=== PATIENT | female | born 1980 | race Caucasian/White ===

== ENCOUNTER 2019-04-28 06:11 | Emergency (ER) | payer MEDICAID ==
[~2019-04-28] VITALS: Ht 177.8 cm; Wt 125.0 kg
[~2019-04-28 06:11] MED LIST: ALBU6.7H9 INH; CYCL-1 PO; DEXL60CA3 PO; IBUP-1986 PO; METH-360 PO; NO HOME MEDS; PHEN16.241 PO; ZOF4T PO
[2019-04-28 06:14] VITALS: BP 157/104
[2019-04-28] MEDS ORDERED: erythromycin ophthalmic ointment 1gm tube RIGHTEYE ONE (06:25)
== END 2019-04-28 06:38 | disposition home or self-care (01) ==
LOC: ER 06:12
DX: H57.89 Other specified disorders of eye and adnexa (principal); Z79.899 Other long term (current) drug therapy
CPT/HCPCS: 99282

== ENCOUNTER 2019-09-23 19:59 | Emergency (ER) | payer MEDICAID ==
[~2019-09-23] VITALS: Ht 177.8 cm; Wt 122.0 kg
[2019-09-23 20:26] VITALS: BP 158/112
[2019-09-23 21:39] LABS: CLARITY,URINE SLIGHTLY CLOUDY (Clear); COLOR,URINE YELLOW (Yellow); GLUCOSE, URINE NEGATIVE (Neg); KETONES,URINE NEGATIVE (Neg); LEUKOCYTE ESTERASE ,URINE TRACE (Neg); NITRITES, URINE NEGATIVE (Neg); OCCULT BLOOD,URINE TRACE-INTACT (Neg); PROTEIN,URINE NEGATIVE (Neg); UROBILINOGEN,URINE 0.2 E.U/dL (0.2-1.0)
[2019-09-23 21:40] LABS: UA COLLECTION TYPE CLN CATCH MIDSTREAM
[2019-09-23 21:42] LABS: URINE HCG NEGATIVE (NEG)
[2019-09-23] MEDS ORDERED: HYDROcodone/acetaminophen 5mg/325mg tablet PO ONE (21:45)
[2019-09-23] MEDS ORDERED: ondansetron 4mg rapidly disintigrating tab PO ONE (21:45)
[2019-09-23] MEDS ORDERED: ketorolac trometh inj. 60 MG/2 ML VIAL IM ONE (21:45)
[2019-09-23 21:51] LABS: BACTERIA,URINE 2+ /HPF (Neg); RBC,URINE 0-2 /HPF (0-2); SQUAMOUS EPITHELIAL CELL,UR MODERATE /LPF (FEW)
[2019-09-23] MEDS ORDERED: NITR100C6 PO (22:01)
== END 2019-09-23 22:15 | disposition home or self-care (01) ==
LOC: ER 20:01
DX: S33.5XXA Sprain of ligaments of lumbar spine, initial encounter (principal); N39.0 Urinary tract infection, site not specified; G89.29 Other chronic pain; F10.99 Alcohol use, unspecified with unspecified alcohol-induced disorder; Z79.899 Other long term (current) drug therapy; X58.XXXA Exposure to other specified factors, initial encounter; Y93.89 Activity, other specified; Y92.89 Other specified places as the place of occurrence of the external cause; Y99.8 Other external cause status; Y90.9 Presence of alcohol in blood, level not specified
CPT/HCPCS: 81001; 81025; 87088; 96372; 99283; J1885

== ENCOUNTER 2020-02-01 18:30 | Emergency (ER) | payer MEDICAID ==
[~2020-02-01] VITALS: Ht 177.8 cm; Wt 95.5 kg
[~2020-02-01 18:30] MED LIST changes: +NITR100C6 PO
[2020-02-01] MEDS ORDERED: CEPH250T PO (18:34)
[2020-02-01 19:03] VITALS: BP 145/89
== END 2020-02-01 19:04 | disposition home or self-care (01) ==
LOC: ER 18:30
DX: L03.115 Cellulitis of right lower limb (principal); G89.29 Other chronic pain; Z79.899 Other long term (current) drug therapy
CPT/HCPCS: 99283

== ENCOUNTER 2020-05-22 10:11 | Emergency (ER) | payer MEDICAID ==
[~2020-05-22] VITALS: Ht 177.8 cm; Wt 136.4 kg
[2020-05-22 10:27] VITALS: BP 139/92
[2020-05-22] MEDS ORDERED: ketorolac tromethamine 15mg/ml inj. IM ONE (10:35)
[2020-05-22] MEDS ORDERED: cyclobenzaprine 10mg tablet PO ONE (10:35)
[2020-05-22] MEDS ORDERED: ONDA4TAB6 PO (10:42)
[2020-05-22] MEDS ORDERED: CYCL-1 PO (10:42)
== END 2020-05-22 11:14 | disposition home or self-care (01) ==
LOC: EEVIPCON 10:11 → ER 10:11
DX: B34.9 Viral infection, unspecified (principal); R50.9 Fever, unspecified; M79.18 Myalgia, other site; R51 Headache; R11.2 Nausea with vomiting, unspecified; Z20.828 Contact with and (suspected) exposure to other viral communicable diseases; R21 Rash and other nonspecific skin eruption; R61 Generalized hyperhidrosis; G89.29 Other chronic pain; F17.210 Nicotine dependence, cigarettes, uncomplicated; Z72.89 Other problems related to lifestyle; Z79.899 Other long term (current) drug therapy
CPT/HCPCS: 96372; 99283; J1885; 36415

== ENCOUNTER 2020-05-25 19:17 | Emergency (ER) | payer MEDICAID ==
[~2020-05-25] VITALS: Ht 177.8 cm; Wt 136.4 kg
[~2020-05-25 19:17] MED LIST changes: +ONDA4TAB6 PO
[2020-05-25] MEDS ORDERED: acetaminophen 325mg tablet PO ONE (22:25)
[2020-05-25] MEDS ORDERED: ketorolac trometh. 30mg/ml inj. IV ONE (22:25)
[2020-05-25] MEDS ORDERED: diphenhydrAMINE 50 mg/ml inj IV ONE ×2 (22:25→23:30)
[2020-05-25] MEDS ORDERED: normal saline 1000ml 1,000 ML IV ONE ×2 (22:25→23:30)
[2020-05-25] MEDS ORDERED: proCHLORperazine 10 MG/2 ml inj IV PRN (22:25)
[2020-05-25 22:51] LABS: BASOPHILS % (AUTO) 0.5 % (0-1); EOSINOPHILS # (AUTO) 0.4 X10'3 (0-0.9); EOSINOPHILS % (AUTO) 6.3 % (0-6); HEMATOCRIT 40.6 % (35.0-45.0); HEMOGLOBIN 13.5 g/dl (12.0-16.0); LYMPHOCYTES # (AUTO) 1.9 X10'3 (1.1-4.8); LYMPHOCYTES % (AUTO) 31.2 % (21-51); MEAN CORPUSCULAR HEMOGLOBIN 28.8 PG (27.0-31.0); MEAN CORPUSCULAR HGB CONC 33.2 g/dL (33.0-36.5); MEAN CORPUSCULAR VOLUME 86.8 FL (78-98); MEAN PLATELET VOLUME 8.8 FL (7.4-10.4); MONOCYTES # (AUTO) 0.4 X10'3 (0-0.9); MONOCYTES % (AUTO) 6.6 % (2-12); NEUTROPHILS # (AUTO) 3.4 X10'3 (1.8-7.7); NEUTROPHILS % (AUTO) 55.4 % (42-75); PLATELET COUNT 300 X10'3 (140-440); RED BLOOD COUNT 4.67 X10'6 (4.20-5.60); RED CELL DISTRIBUTION WIDTH 13.3 % (11.5-14.5); WHITE BLOOD COUNT 6.1 X10'3 (4.5-11.0)
[2020-05-25 23:02] LABS: ALBUMIN 2.9 G/DL (3.4-5.0); ANION GAP 6 (8-16); BLOOD UREA NITROGEN 10 MG/DL (7-18); BUN/CREATININE RATIO 11.2 (6.6-38.0); CALCIUM 8.1 MG/DL (8.5-10.1); CHLORIDE 109 MMOL/L (99-107); CREATININE 0.89 MG/DL (0.40-0.90); GLUCOSE 98 MG/DL (70-104); POTASSIUM 3.7 MMOL/L (3.5-5.1); SODIUM 142 MMOL/L (135-145); TOTAL CARBON DIOXIDE 27.3 MMOL/L (24-32); eGFR 71 ML/MIN
[2020-05-25] MEDS ORDERED: metoclopramide 5 mg/ml inj IV ONE (23:30)
[2020-05-26 00:20] VITALS: BP 102/60
[2020-05-26 00:24] LABS: URINE HCG NEGATIVE (NEG)
[2020-05-26 00:26] LABS: CLARITY,URINE SLIGHTLY CLOUDY (Clear); COLOR,URINE YELLOW (Yellow); GLUCOSE, URINE NEGATIVE (Neg); KETONES,URINE NEGATIVE (Neg); LEUKOCYTE ESTERASE ,URINE NEGATIVE (Neg); NITRITES, URINE NEGATIVE (Neg); OCCULT BLOOD,URINE TRACE-INTACT (Neg); PROTEIN,URINE TRACE mg/dl (Neg); UROBILINOGEN,URINE 0.2 E.U/dL (0.2-1.0)
[2020-05-26 00:38] LABS: UA COLLECTION TYPE CLN CATCH MIDSTREAM
[2020-05-26 00:39] LABS: BACTERIA,URINE 1+ /HPF (Neg); RBC,URINE 0-2 /HPF (0-2); SQUAMOUS EPITHELIAL CELL,UR MODERATE /LPF (FEW); WBC,URINE NONE SEEN /HPF (0-4)
== END 2020-05-26 00:21 | disposition home or self-care (01) ==
LOC: ER 19:18
DX: M79.10 Myalgia, unspecified site (principal); R51 Headache; G47.30 Sleep apnea, unspecified; F17.200 Nicotine dependence, unspecified, uncomplicated; Z72.89 Other problems related to lifestyle; Z79.899 Other long term (current) drug therapy
CPT/HCPCS: 36415; 80048; 81001; 81025; 85025; 93005; 96361; 96374; 96375; 96376; 99285; J0780; J1200; J1885; J2765; J7030; 99284

== ENCOUNTER 2023-01-23 12:54 | Inpatient (IN) | payer MEDICAID, OTHER ==
[~2023-01-23] VITALS: Ht 177.8 cm; Wt 137.8 kg
[2023-01-23] VITALS (13 sets, daily range): BP systolic 117–144; BP diastolic 71–103
[~2023-01-23 12:54] MED LIST changes: +ALBU6.7H14 INH; -ALBU6.7H9 INH
[2023-01-23 13:30] LABS: BASOPHILS # (AUTO) 0.1 X10'3 (0-0.2); EOSINOPHILS # (AUTO) 0.5 X10'3 (0-0.9); EOSINOPHILS % (AUTO) 5.3 % (0-6); HEMATOCRIT 39.2 % (35.0-45.0); HEMOGLOBIN 12.1 g/dl (12.0-16.0); LYMPHOCYTES # (AUTO) 1.5 X10'3 (1.1-4.8); LYMPHOCYTES % (AUTO) 16.6 % (21-51); MEAN CORPUSCULAR HEMOGLOBIN 23.7 PG (27.0-31.0); MEAN CORPUSCULAR HGB CONC 30.9 g/dL (33.0-36.5); MEAN CORPUSCULAR VOLUME 76.9 FL (78-98); MEAN PLATELET VOLUME 8.1 FL (7.4-10.4); MONOCYTES # (AUTO) 0.4 X10'3 (0-0.9); MONOCYTES % (AUTO) 4.6 % (2-12); NEUTROPHILS # (AUTO) 6.7 X10'3 (1.8-7.7); NEUTROPHILS % (AUTO) 72.5 % (42-75); PLATELET COUNT 475 X10'3 (140-440); RED CELL DISTRIBUTION WIDTH 17.3 % (11.5-14.5); WHITE BLOOD COUNT 9.3 X10'3 (4.5-11.0)
[2023-01-23 13:31] LABS: CLARITY,URINE CLOUDY (Clear); COLOR,URINE YELLOW (Yellow); GLUCOSE, URINE NEGATIVE (Neg); KETONES,URINE TRACE mg/dl (Neg); LEUKOCYTE ESTERASE ,URINE NEGATIVE (Neg); NITRITES, URINE NEGATIVE (Neg); OCCULT BLOOD,URINE MODERATE (Neg); PROTEIN,URINE TRACE mg/dl (Neg); UROBILINOGEN,URINE 0.2 E.U/dL (0.2-1.0)
[2023-01-23 13:37] LABS: UA COLLECTION TYPE CLN CATCH MIDSTREAM
[2023-01-23 13:40] LABS: URINE HCG NEGATIVE (NEG)
[2023-01-23 13:50] LABS: MUCUS STRANDS MANY /LPF (Neg); SQUAMOUS EPITHELIAL CELL,UR MANY /LPF (FEW)
[2023-01-23 13:51] LABS: BACTERIA,URINE FEW /HPF (Neg); WBC,URINE 0-4 /HPF (0-4)
[2023-01-23 13:52] LABS: ALANINE AMINOTRANSFERASE 19 U/L (12-78); ALBUMIN 3.8 G/DL (3.4-5.0); ALKALINE PHOSPHATASE 90 IU/L (46-116); ANION GAP 9 (8-16); ASPARTATE AMINO TRANSFERASE 17 U/L (10-37); BILIRUBIN,TOTAL 0.3 MG/DL (0.1-1.0); BLOOD UREA NITROGEN 13 MG/DL (7-18); BUN/CREATININE RATIO 11.7 (10.0-20.0); CALCIUM 9.9 MG/DL (8.5-10.1); CHLORIDE 106 MMOL/L (99-107); CREATININE 1.11 MG/DL (0.40-0.90); GLUCOSE 110 MG/DL (70-104); LIPASE 62 U/L (73-393); POTASSIUM 4.5 MMOL/L (3.5-5.1); SODIUM 143 MMOL/L (135-145); TOTAL CARBON DIOXIDE 28.3 MMOL/L (24-32); TOTAL PROTEIN 7.6 G/DL (6.4-8.2); eGFR 54 ML/MIN
[2023-01-23] MEDS ORDERED: morphine 4 MG/ML inj SYRINge IV ONE (14:15)
[2023-01-23] MEDS ORDERED: ondansetron/PF 4mg/2ml inj IV ONE (14:15)
[2023-01-23] MEDS ORDERED: iohexol 300mg/ml 100ml inj. ONE (14:23)
--- NOTE | 2023-01-23 16:48 | NUR ---
Doppler U/S done w/ 15cc urine resid. Pt taken to [facility] Room F, and Enma Rubio examined pt, w/ wet mount and vag culture completed. Pt amb back to Rm 12 and was resituated.
[2023-01-23] MEDS ORDERED: ceFAZolin 1000mg inj IR ONE (17:00)
[2023-01-23] MEDS ORDERED: ondansetron/PF 4mg/2ml inj IV PRN ×2 (17:10→19:55)
[2023-01-23] MEDS ORDERED: ringers solution, lacted 1,000 ML IV SCH (17:10)
[2023-01-23] MEDS ORDERED: morphine 2 MG/ML inj. syringe IV PRN (17:10)
[2023-01-23] MEDS ORDERED: fentaNYL/PF 50MCG/1 ML 2ML syringe IV PRN (17:10)
[2023-01-23] MEDS ORDERED: hydrALAZINE 20mg/ml inj. IV PRN (17:10)
[2023-01-23] MEDS ORDERED: morphine 4 MG/ML inj SYRINge IV PRN (17:10)
[2023-01-23] MEDS ORDERED: labetalol 20mg/4ml (5mg/ml) syringe IV PRN (17:10)
[2023-01-23] MEDS ORDERED: iohexol 300 MG/1 ML 50ml polymer ONE (17:15)
[2023-01-23] MEDS ORDERED: fentaNYL/PF 50MCG/1 ML 2ML syringe ONE (17:20)
[2023-01-23] MEDS ORDERED: midazolam 1 mg/ML 2ml injection ONE (17:21)
[2023-01-23] MEDS ORDERED: succinylcholine 20mg/ml inj IV ONE (17:22)
[2023-01-23] MEDS ORDERED: ondansetron/PF 4mg/2ml inj ONE (17:22)
[2023-01-23] MEDS ORDERED: LIDOcaine 2% (20mg/ml) 5ml vial ONE (17:22)
[2023-01-23] MEDS ORDERED: iohexol 350 MG/ML 50ML vial IV ONE (17:51)
[2023-01-23] MEDS ORDERED: dexamethasone sod phosphate 4mg/ml inj. ONE (18:04)
--- NOTE | 2023-01-23 18:50 | NUR ---
Received from OR via , accompanied by Anesthesiologist and report given by Anesthesiolgist. PATIENT A&OX4, C/O PAIN SEE EMAR, V/S WNL, CSM INTACT, NO ACTIVE DRAINAGE OBSERVED FROM SURGICAL SITE. 20G PIV TO RUE. SCD ON.
[2023-01-23] MEDS ORDERED: CEPH250T PO (18:59)
[2023-01-23] MEDS: fentaNYL/PF 50MCG/1 ML 2ML syringe IV PRN ×2 (19:03→19:09)
[2023-01-23] MEDS ORDERED: ketorolac trometh. 30mg/ml inj. IV ONE (19:05)
[2023-01-23] MEDS ORDERED: magnesium 2GM in 50ml NS 50 ML IV PRN (19:55)
[2023-01-23] MEDS ORDERED: magnesium Cl slow-release 64mg tablet PO PRN (19:55)
[2023-01-23] MEDS ORDERED: acetaminophen 325mg tablet PO PRN (19:55)
[2023-01-23] MEDS ORDERED: magnesium 4gm in 100ml NS 100 ML IV PRN (19:55)
[2023-01-23] MEDS ORDERED: potassium Cl 40MEQ/1/2NS 520ml 520 ML IV PRN (19:55)
[2023-01-23] MEDS ORDERED: potassium Cl 20 mEq SR tablet PO PRN ×2 (19:55)
--- NOTE | 2023-01-23 20:00 | NUR ---
A&OX4, C/O PAIN SEE EMAR, V/S WNL, CSM INTACT, NO ACTIVE DRAINAGE OBSERVED FROM SURGICAL SITE. 20G PIV TO SHAMAR. SCD ON. PATIENT TAKEN TO SURGICAL ROOM WITH ALL BELONGINGS HOOKED UP TO MONITORS AND GIVEN CALL LIGHT REPORT GIVEN TO SHAMEKA MYLES RN WHO HAS TAKEN OVER PATIENT CARE.
--- NOTE | 2023-01-23 20:15 | NUR ---
PATIENT ADMITTED TO ROOM 351 FROM RECOVERY ROOM AFTER RIGHT URETER STENT WAS PLACED BY DR. FULLER. PLACED COMFORTABLE IN BED. VITAL SIGNS MONITORED.
[2023-01-23] MEDS: normal saline 1000ml 1,000 ML IV SCH (20:26)
[2023-01-23] MEDS: K and/or MAG REPLACEMENT MC SCH (21:00)
[2023-01-23] MEDS: morphine 2 MG/ML inj. syringe IV PRN (22:43)
[2023-01-24] MEDS: normal saline 1000ml 1,000 ML IV SCH ×2 (05:41→15:55)
[2023-01-24 06:00] VITALS: BP 121/71
--- NOTE | 2023-01-24 06:23 | NUR ---
Problems reprioritized. Patient report given, questions answered & plan of care reviewed with EZEQUIEL COOPER.
[2023-01-24] MEDS: morphine 2 MG/ML inj. syringe IV PRN (06:33)
--- NOTE | 2023-01-24 06:45 | NUR ---
Patient in room [facility] 351. I have received report from ALLISON Aggarwal and had the opportunity to ask questions and assume patient care.
[2023-01-24 06:50] LABS: BASOPHILS % (AUTO) 0.3 % (0-1); EOSINOPHILS % (AUTO) 0 % (0-6); HEMATOCRIT 36.1 % (35.0-45.0); HEMOGLOBIN 11.2 g/dl (12.0-16.0); LYMPHOCYTES # (AUTO) 0.8 X10'3 (1.1-4.8); LYMPHOCYTES % (AUTO) 6.4 % (21-51); MEAN CORPUSCULAR HEMOGLOBIN 23.9 PG (27.0-31.0); MEAN CORPUSCULAR HGB CONC 31.2 g/dL (33.0-36.5); MEAN CORPUSCULAR VOLUME 76.7 FL (78-98); MEAN PLATELET VOLUME 8.8 FL (7.4-10.4); MONOCYTES # (AUTO) 0.2 X10'3 (0-0.9); MONOCYTES % (AUTO) 1.6 % (2-12); NEUTROPHILS # (AUTO) 11.2 X10'3 (1.8-7.7); NEUTROPHILS % (AUTO) 91.7 % (42-75); PLATELET COUNT 428 X10'3 (140-440); RED CELL DISTRIBUTION WIDTH 16.5 % (11.5-14.5); WHITE BLOOD COUNT 12.2 X10'3 (4.5-11.0)
[2023-01-24 07:19] LABS: ALBUMIN 3.3 G/DL (3.4-5.0); ANION GAP 9 (8-16); BLOOD UREA NITROGEN 13 MG/DL (7-18); BUN/CREATININE RATIO 12.7 (10.0-20.0); CALCIUM 9.3 MG/DL (8.5-10.1); CHLORIDE 105 MMOL/L (99-107); CREATININE 1.02 MG/DL (0.40-0.90); GLUCOSE 109 MG/DL (70-104); MAGNESIUM 1.9 MG/DL (1.5-2.4); POTASSIUM 4.4 MMOL/L (3.5-5.1); SODIUM 139 MMOL/L (135-145); TOTAL CARBON DIOXIDE 25.3 MMOL/L (24-32); eGFR 60 ML/MIN
[2023-01-24] MEDS: K and/or MAG REPLACEMENT MC SCH ×2 (07:45→20:00)
--- NOTE | 2023-01-24 08:00 | NUR ---
Lazara Mckenna. 351. Patient only has morphine ordered, can we get PO pain meds? Was taking [place] 5 at home worked well. Thank you, Heidy [phone].
[2023-01-24 10:00] VITALS: BP 132/75
[2023-01-24] MEDS: HYDROcodone/acetaminophen 5mg/325mg tablet PO PRN ×2 (12:32→18:53)
[2023-01-24] MEDS: CefTRIAXone/D5W-Rocephin 1gm 50 ML IV SCH (13:42)
--- NOTE | 2023-01-24 15:51 | NUR ---
SINGLE NEEDLE OPERATOR documentation: I have reviewed and agree with all interventions, assessments performed and documented by Heidy Simon LVN.
[2023-01-24] MEDS: acetaminophen 325mg tablet PO PRN (16:13)
--- NOTE | 2023-01-24 17:14 | NUR ---
Message: Vanita Mckenna 351 Patient reporting 10/10 pain uncontrolled by [place] or tylenol. VS 146/75 HR 80. Could one time IV pain med be ordered? Thank you, Heidy [phone].
[2023-01-24 18:00] VITALS: BP 131/86
--- NOTE | 2023-01-24 18:16 | NUR ---
Problems reprioritized. Patient report given, questions answered & plan of care reviewed with ALLISON Aggarwal.
[2023-01-25] MEDS: normal saline 1000ml 1,000 ML IV SCH ×2 (01:55→05:27)
[2023-01-25] MEDS: HYDROcodone/acetaminophen 5mg/325mg tablet PO PRN ×2 (04:29→11:27)
[2023-01-25 05:00] VITALS: BP 139/81
[2023-01-25 06:28] LABS: ANION GAP 8 (8-16); BASOPHILS % (AUTO) 0.2 % (0-1); BLOOD UREA NITROGEN 16 MG/DL (7-18); BUN/CREATININE RATIO 16.2 (10.0-20.0); CALCIUM 8.5 MG/DL (8.5-10.1); CHLORIDE 108 MMOL/L (99-107); CREATININE 0.99 MG/DL (0.40-0.90); EOSINOPHILS # (AUTO) 0.2 X10'3 (0-0.9); EOSINOPHILS % (AUTO) 2.9 % (0-6); GLUCOSE 99 MG/DL (70-104); HEMATOCRIT 31.2 % (35.0-45.0); HEMOGLOBIN 10.1 g/dl (12.0-16.0); LYMPHOCYTES % (AUTO) 23.4 % (21-51); MEAN CORPUSCULAR HEMOGLOBIN 24.8 PG (27.0-31.0); MEAN CORPUSCULAR HGB CONC 32.3 g/dL (33.0-36.5); MEAN CORPUSCULAR VOLUME 76.9 FL (78-98); MEAN PLATELET VOLUME 8.8 FL (7.4-10.4); MONOCYTES # (AUTO) 0.5 X10'3 (0-0.9); MONOCYTES % (AUTO) 6.4 % (2-12); NEUTROPHILS # (AUTO) 5.7 X10'3 (1.8-7.7); NEUTROPHILS % (AUTO) 67.1 % (42-75); PLATELET COUNT 364 X10'3 (140-440); POTASSIUM 3.9 MMOL/L (3.5-5.1); RED BLOOD COUNT 4.06 X10'6 (4.20-5.60); RED CELL DISTRIBUTION WIDTH 16.8 % (11.5-14.5); SODIUM 142 MMOL/L (135-145); WHITE BLOOD COUNT 8.5 X10'3 (4.5-11.0); eGFR 62 ML/MIN
--- NOTE | 2023-01-25 06:30 | NUR ---
Problems reprioritized. Patient report given, questions answered & plan of care reviewed with CHON COOPER.
[2023-01-25] MEDS: K and/or MAG REPLACEMENT MC SCH (08:00)
[2023-01-25] MEDS: CefTRIAXone/D5W-Rocephin 1gm 50 ML IV SCH (08:18)
[2023-01-25] MEDS: acetaminophen 325mg tablet PO PRN (08:19)
[2023-01-25 10:00] VITALS: BP 142/88
[2023-01-25 13:59] VITALS: BP 139/81
[2023-01-25] MEDS ORDERED: CEPH250T PO (14:46)
--- NOTE | 2023-01-25 15:41 | NUR ---
Pt alert and ready for discharge. Pt educated on discharge instructions, medications and post op care. Pt to follow up with Dr. Ochoa. Pt verbalized understanding. IV discontinued. Pt left will all belongings. Care provided with primary nurse, Berta COOPER.
[2023-01-25] MEDS ORDERED: FERR324T4 PO (18:04)
== END 2023-01-25 15:00 | disposition home or self-care (01) | DRG 465 ==
LOC: ER 12:54 → SUR 3N 20:01
PROVIDERS: ADMIT Internal Medicine; ATTEND Family Medicine
PROC: BT1D1ZZ Fluoroscopy of Right Kidney, Ureter and Bladder using Low Osmolar Contrast (ICD-10-PCS; 2023-01-23)
PROC: BW211ZZ Computerized Tomography (CT Scan) of Abdomen and Pelvis using Low Osmolar Contrast (ICD-10-PCS; 2023-01-23)
PROC: 0T768DZ Dilation of Right Ureter with Intraluminal Device, Via Natural or Artificial Opening Endoscopic (ICD-10-PCS; principal; 2023-01-23 17:51)
DX: N13.30 Unspecified hydronephrosis (principal); R39.0 Extravasation of urine; S37.10XA Unspecified injury of ureter, initial encounter; E66.01 Morbid (severe) obesity due to excess calories; G47.30 Sleep apnea, unspecified; M54.9 Dorsalgia, unspecified; X58.XXXA Exposure to other specified factors, initial encounter; F17.210 Nicotine dependence, cigarettes, uncomplicated; Z68.41 Body mass index [BMI] 40.0-44.9, adult; G89.29 Other chronic pain; J45.909 Unspecified asthma, uncomplicated; K21.9 Gastro-esophageal reflux disease without esophagitis; Z90.710 Acquired absence of both cervix and uterus; Z79.899 Other long term (current) drug therapy; Y93.89 Activity, other specified; Y92.89 Other specified places as the place of occurrence of the external cause; Y99.8 Other external cause status
CPT/HCPCS: 36415; 74177; 76000; 76700; 80048; 80053; 81001; 81025; 83690; 83735; 85025; 87070; 87077; 87081; 87088; 87186; 87210; 99285; A4618; C2617; G0378; J0330; J0690; J0696; J1100; J1885; J2250; J2270; J2405; J3010; J3490; J7030; Q9967

== ENCOUNTER 2023-02-25 17:06 | Inpatient (IN) | payer MEDICAID ==
[~2023-02-25] VITALS: Ht 177.8 cm; Wt 136.4 kg
[~2023-02-25 17:06] MED LIST changes: +CEPH250T PO; +FERR324T4 PO; -IBUP-1986 PO; -NITR100C6 PO; -NO HOME MEDS
[2023-02-25] MEDS ORDERED: ondansetron/PF 4mg/2ml inj IV ONE (18:05)
[2023-02-25] MEDS ORDERED: normal saline 1000ML IV soln IV ONE (18:05)
[2023-02-25] MEDS ORDERED: CefTRIAXone/D5W-Rocephin 1gm 50 ML IV ONE (18:05)
[2023-02-25] MEDS ORDERED: morphine 4 MG/ML inj SYRINge IV ONE (18:05)
[2023-02-25 18:33] LABS: BASOPHILS % (AUTO) 0.2 % (0-1); EOSINOPHILS # (AUTO) 0.2 X10'3 (0-0.9); EOSINOPHILS % (AUTO) 1.3 % (0-6); HEMATOCRIT 36.2 % (35.0-45.0); HEMOGLOBIN 11.2 g/dl (12.0-16.0); LYMPHOCYTES # (AUTO) 0.7 X10'3 (1.1-4.8); LYMPHOCYTES % (AUTO) 4.7 % (21-51); MEAN CORPUSCULAR HEMOGLOBIN 23.4 PG (27.0-31.0); MEAN CORPUSCULAR HGB CONC 30.9 g/dL (33.0-36.5); MEAN CORPUSCULAR VOLUME 75.7 FL (78-98); MEAN PLATELET VOLUME 8.2 FL (7.4-10.4); MONOCYTES # (AUTO) 0.9 X10'3 (0-0.9); MONOCYTES % (AUTO) 6.1 % (2-12); NEUTROPHILS # (AUTO) 13.5 X10'3 (1.8-7.7); NEUTROPHILS % (AUTO) 87.7 % (42-75); PLATELET COUNT 502 X10'3 (140-440); RED BLOOD COUNT 4.79 X10'6 (4.20-5.60); RED CELL DISTRIBUTION WIDTH 16.7 % (11.5-14.5); WHITE BLOOD COUNT 15.4 X10'3 (4.5-11.0)
[2023-02-25 18:40] LABS: ALANINE AMINOTRANSFERASE 24 U/L (12-78); ALBUMIN 3.5 G/DL (3.4-5.0); ALBUMIN/GLOBULIN RATIO 0.9 (1.1-1.5); ALKALINE PHOSPHATASE 105 IU/L (46-116); ANION GAP 12 (8-16); ASPARTATE AMINO TRANSFERASE 17 U/L (10-37); BILIRUBIN,TOTAL 0.4 MG/DL (0.1-1.0); BLOOD UREA NITROGEN 14 MG/DL (7-18); BUN/CREATININE RATIO 12.6 (10.0-20.0); CALCIUM 9.9 MG/DL (8.5-10.1); CHLORIDE 103 MMOL/L (99-107); CREATININE 1.11 MG/DL (0.40-0.90); GLUCOSE 122 MG/DL (70-104); POTASSIUM 3.8 MMOL/L (3.5-5.1); SODIUM 137 MMOL/L (135-145); TOTAL PROTEIN 7.2 G/DL (6.4-8.2); eGFR 54 ML/MIN
[2023-02-25] MEDS ORDERED: iohexol 350MG/ML 100ml bottle IV ONE (18:47)
[2023-02-25 19:28] LABS: CLARITY,URINE CLOUDY (Clear); COLOR,URINE YELLOW (Yellow); GLUCOSE, URINE NEGATIVE (Neg); KETONES,URINE NEGATIVE (Neg); LEUKOCYTE ESTERASE ,URINE LARGE (Neg); NITRITES, URINE POSITIVE (Neg); OCCULT BLOOD,URINE MODERATE (Neg); PROTEIN,URINE TRACE mg/dl (Neg); UROBILINOGEN,URINE 0.2 E.U/dL (0.2-1.0)
[2023-02-25 19:35] LABS: UA COLLECTION TYPE NON-SPECIFIED
[2023-02-25 19:36] LABS: WBC,URINE TNTC /HPF (0-4)
[2023-02-25 19:37] LABS: BACTERIA,URINE 3+ /HPF (Neg); RBC,URINE TNTC /HPF (0-2); TRANSITIONAL EPI CELLS,URINE MODERATE /HPF; WBC CLUMPS,URINE MANY /HPF (NEGATIVE)
[2023-02-25 19:38] LABS: YEAST FEW /HPF (NEGATIVE)
[2023-02-25 19:41] LABS: SQUAMOUS EPITHELIAL CELL,UR MODERATE /LPF (FEW)
[2023-02-25] MEDS ORDERED: ketorolac trometh. 30mg/ml inj. IV ONE (19:50)
[2023-02-25] MEDS ORDERED: HYDROmorphone 1 mg/ml syringe IV ONE (20:55)
[2023-02-25] MEDS ORDERED: potassium Cl 40MEQ/1/2NS 520ml 520 ML IV PRN (21:05)
[2023-02-25] MEDS ORDERED: potassium Cl 20 mEq SR tablet PO PRN ×2 (21:05)
[2023-02-25] MEDS: normal saline 1000ml 1,000 ML IV SCH (21:23)
[2023-02-25] MEDS: acetaminophen 325mg tablet PO PRN (22:23)
--- NOTE | 2023-02-25 22:57 | NUR ---
MD LYONS NOTIFIED OF PT TEMP CONTINUING TO RIDE POST TYLENOL ADMINISTRATION AND RECVIEVED V/O FOR 15MG TORADOL IV X1.
[2023-02-25] MEDS ORDERED: ketorolac tromethamine 15mg/ml inj. ONE (22:59)
[2023-02-25] MEDS ORDERED: ketorolac tromethamine 15mg/ml inj. IV ONE (23:00)
[2023-02-26] MEDS: HYDROmorphone inj. 0.5 MG/0.5 ML DISP.SYRIN IV PRN ×7 (00:21→22:40)
--- NOTE | 2023-02-26 00:33 | NUR ---
Received report from Terri KAMARA RN. Patient to follow shortly.
--- NOTE | 2023-02-26 00:40 | NUR ---
Patient arrived to floor from ER via gurney. A&O x4, pain is under control with a recent dose of dilaudid given in the ER. Settled into bed, VS taken, assessment completed and ice chips and a warm blanket given. Patient is tired and just wants to rest at this time. Addendum: 02/26/23 at 0536 by Nataliia Lopez RN At this time temp was 99.0
[2023-02-26 00:45] VITALS: BP 111/62
[2023-02-26] MEDS: ondansetron/PF 4mg/2ml inj IV PRN (04:28)
[2023-02-26] MEDS: acetaminophen 325mg tablet PO PRN ×3 (05:34→17:54)
--- NOTE | 2023-02-26 05:37 | NUR ---
Just gave 2 x tylenol for elevated temp of 103.3 along with an ice pack. Patient also c/o slight headache at this time.
[2023-02-26] MEDS ORDERED: proCHLORperazine 10 MG/2 ml inj IV ONE (06:20)
--- NOTE | 2023-02-26 06:30 | NUR ---
Temp has come down to 100.5. New 1 x order for compazine obtained as patient is still feeling nauseous.
[2023-02-26] MEDS: K and/or MAG REPLACEMENT MC SCH ×2 (06:43→19:09)
[2023-02-26 06:47] LABS: BASOPHILS % (AUTO) 0.3 % (0-1); EOSINOPHILS # (AUTO) 0.1 X10'3 (0-0.9); EOSINOPHILS % (AUTO) 0.4 % (0-6); HEMATOCRIT 30.4 % (35.0-45.0); HEMOGLOBIN 9.7 g/dl (12.0-16.0); LYMPHOCYTES # (AUTO) 1.1 X10'3 (1.1-4.8); LYMPHOCYTES % (AUTO) 8.9 % (21-51); MEAN CORPUSCULAR HEMOGLOBIN 24.1 PG (27.0-31.0); MEAN CORPUSCULAR HGB CONC 31.9 g/dL (33.0-36.5); MEAN CORPUSCULAR VOLUME 75.4 FL (78-98); MONOCYTES # (AUTO) 1.2 X10'3 (0-0.9); MONOCYTES % (AUTO) 9.4 % (2-12); NEUTROPHILS # (AUTO) 10.2 X10'3 (1.8-7.7); PLATELET COUNT 412 X10'3 (140-440); RED BLOOD COUNT 4.04 X10'6 (4.20-5.60); RED CELL DISTRIBUTION WIDTH 16.5 % (11.5-14.5); WHITE BLOOD COUNT 12.6 X10'3 (4.5-11.0)
[2023-02-26 06:53] LABS: ALANINE AMINOTRANSFERASE 15 U/L (12-78); ALBUMIN 2.9 G/DL (3.4-5.0); ALBUMIN/GLOBULIN RATIO 0.9 (1.1-1.5); ALKALINE PHOSPHATASE 85 IU/L (46-116); ANION GAP 7 (8-16); ASPARTATE AMINO TRANSFERASE 14 U/L (10-37); BILIRUBIN,TOTAL 0.6 MG/DL (0.1-1.0); BLOOD UREA NITROGEN 13 MG/DL (7-18); BUN/CREATININE RATIO 11.7 (10.0-20.0); CALCIUM 8.5 MG/DL (8.5-10.1); CHLORIDE 104 MMOL/L (99-107); CREATININE 1.11 MG/DL (0.40-0.90); GLUCOSE 112 MG/DL (70-104); POTASSIUM 3.7 MMOL/L (3.5-5.1); SODIUM 136 MMOL/L (135-145); TOTAL CARBON DIOXIDE 25.3 MMOL/L (24-32); TOTAL PROTEIN 6.3 G/DL (6.4-8.2); eGFR 54 ML/MIN
--- NOTE | 2023-02-26 07:03 | NUR ---
Reported off to Santhosh COOPER. Patient currently laying in bed on using her cell phone. Bed low/locked.
[2023-02-26 07:06] VITALS: BP 133/69
[2023-02-26] MEDS: normal saline 1000ml 1,000 ML IV SCH ×2 (07:40→17:05)
[2023-02-26 10:00] VITALS: BP 119/65
[2023-02-26] MEDS ORDERED: ketorolac trometh. 30mg/ml inj. IV ONE (12:35)
--- NOTE | 2023-02-26 12:37 | NUR ---
Dr. Ochoa's office called and asked if he was going to come see pt and what the plan of care is to be.
[2023-02-26] MEDS ORDERED: MULT-1074 PO (12:44)
[2023-02-26] MEDS ORDERED: MELA10CA2 PO (12:44)
[2023-02-26] MEDS ORDERED: LISI10TA27 PO (12:44)
[2023-02-26] MEDS ORDERED: ESTR1TAB28 PO (12:44)
[2023-02-26 18:00] VITALS: BP 121/72
[2023-02-26] MEDS: CefTRIAXone/D5W-Rocephin 1gm 50 ML IV SCH (20:15)
[2023-02-26] MEDS: heparin, porcine 5000 units/ml vial SQ SCH (20:22)
[2023-02-26 22:05] VITALS: BP 132/72
[2023-02-26] MEDS ORDERED: Melatonin 3mg tablet PO PRN (23:15)
[2023-02-27] MEDS: normal saline 1000ml 1,000 ML IV SCH ×3 (01:23→23:27)
[2023-02-27] MEDS: HYDROmorphone inj. 0.5 MG/0.5 ML DISP.SYRIN IV PRN ×7 (03:21→23:22)
[2023-02-27 06:00] VITALS: BP 116/59
--- NOTE | 2023-02-27 06:36 | NUR ---
Report given to Moon COOPER, all questions answered. Michelle has gone on an AM walk. Awaiting to hear plan from Dr Ochoa
[2023-02-27] MEDS: heparin, porcine 5000 units/ml vial SQ SCH ×2 (06:46→20:46)
--- NOTE | 2023-02-27 06:48 | NUR ---
Patient in room [facility] 4006. I have received report from Lizzie COOPER and had the opportunity to ask questions and assume patient care. RN held patients heparin in case of possible procedure today.
[2023-02-27] MEDS: estradiol 1mg tablet PO SCH (07:11)
[2023-02-27] MEDS: ondansetron/PF 4mg/2ml inj IV PRN (07:11)
[2023-02-27] MEDS: multivitamins, therapeutics tablet PO SCH (07:18)
[2023-02-27] MEDS: lisinopril 10 MG tablet PO SCH (07:18)
[2023-02-27] MEDS: K and/or MAG REPLACEMENT MC SCH ×2 (07:18→20:00)
[2023-02-27 07:28] LABS: BASOPHILS % (AUTO) 0.3 % (0-1); EOSINOPHILS # (AUTO) 0.1 X10'3 (0-0.9); EOSINOPHILS % (AUTO) 0.7 % (0-6); HEMATOCRIT 28.6 % (35.0-45.0); LYMPHOCYTES # (AUTO) 1.3 X10'3 (1.1-4.8); LYMPHOCYTES % (AUTO) 8.8 % (21-51); MEAN CORPUSCULAR HEMOGLOBIN 23.9 PG (27.0-31.0); MEAN CORPUSCULAR HGB CONC 31.4 g/dL (33.0-36.5); MEAN CORPUSCULAR VOLUME 76.1 FL (78-98); MEAN PLATELET VOLUME 8.7 FL (7.4-10.4); MONOCYTES # (AUTO) 1.5 X10'3 (0-0.9); MONOCYTES % (AUTO) 10.2 % (2-12); NEUTROPHILS # (AUTO) 11.7 X10'3 (1.8-7.7); PLATELET COUNT 360 X10'3 (140-440); RED BLOOD COUNT 3.75 X10'6 (4.20-5.60); RED CELL DISTRIBUTION WIDTH 16.3 % (11.5-14.5); WHITE BLOOD COUNT 14.7 X10'3 (4.5-11.0)
[2023-02-27 07:43] LABS: ALANINE AMINOTRANSFERASE 15 U/L (12-78); ALBUMIN 2.6 G/DL (3.4-5.0); ALBUMIN/GLOBULIN RATIO 0.7 (1.1-1.5); ALKALINE PHOSPHATASE 103 IU/L (46-116); ANION GAP 6 (8-16); ASPARTATE AMINO TRANSFERASE 19 U/L (10-37); BILIRUBIN,TOTAL 0.4 MG/DL (0.1-1.0); BLOOD UREA NITROGEN 9 MG/DL (7-18); BUN/CREATININE RATIO 9.1 (10.0-20.0); CALCIUM 8.4 MG/DL (8.5-10.1); CHLORIDE 103 MMOL/L (99-107); CREATININE 0.99 MG/DL (0.40-0.90); GLUCOSE 95 MG/DL (70-104); MAGNESIUM 1.8 MG/DL (1.5-2.4); PHOSPHORUS 2.4 MG/DL (2.3-4.5); POTASSIUM 3.5 MMOL/L (3.5-5.1); SODIUM 136 MMOL/L (135-145); TOTAL CARBON DIOXIDE 26.9 MMOL/L (24-32); TOTAL PROTEIN 6.1 G/DL (6.4-8.2); eGFR 62 ML/MIN
[2023-02-27 10:00] VITALS: BP 111/62
[2023-02-27] MEDS: acetaminophen 325mg tablet PO PRN ×2 (13:46→23:22)
[2023-02-27] MEDS: CefTRIAXone/D5W-Rocephin 1gm 50 ML IV SCH (18:24)
[2023-02-27 22:00] VITALS: BP 106/53
[2023-02-28] MEDS: HYDROmorphone inj. 0.5 MG/0.5 ML DISP.SYRIN IV PRN ×6 (03:57→23:08)
--- NOTE | 2023-02-28 06:21 | NUR ---
Patient in room [facility]TH[facility] 4006. I have received report from GIOVANNI and had the opportunity to ask questions and assume patient care.
[2023-02-28 06:39] LABS: BASOPHILS % (AUTO) 0.2 % (0-1); EOSINOPHILS # (AUTO) 0.4 X10'3 (0-0.9); EOSINOPHILS % (AUTO) 4.2 % (0-6); HEMATOCRIT 27.9 % (35.0-45.0); HEMOGLOBIN 8.9 g/dl (12.0-16.0); LYMPHOCYTES # (AUTO) 1.7 X10'3 (1.1-4.8); LYMPHOCYTES % (AUTO) 19.1 % (21-51); MEAN CORPUSCULAR HEMOGLOBIN 24.2 PG (27.0-31.0); MEAN CORPUSCULAR VOLUME 75.7 FL (78-98); MEAN PLATELET VOLUME 8.2 FL (7.4-10.4); MONOCYTES # (AUTO) 0.8 X10'3 (0-0.9); MONOCYTES % (AUTO) 9.1 % (2-12); NEUTROPHILS % (AUTO) 67.4 % (42-75); PLATELET COUNT 345 X10'3 (140-440); RED BLOOD COUNT 3.68 X10'6 (4.20-5.60); RED CELL DISTRIBUTION WIDTH 16.1 % (11.5-14.5); WHITE BLOOD COUNT 8.8 X10'3 (4.5-11.0)
[2023-02-28 06:49] VITALS: BP 98/52
[2023-02-28] MEDS: lisinopril 10 MG tablet PO SCH ×2 (06:54→10:43)
[2023-02-28] MEDS: multivitamins, therapeutics tablet PO SCH (06:54)
[2023-02-28 06:58] LABS: ALANINE AMINOTRANSFERASE 22 U/L (12-78); ALBUMIN 2.6 G/DL (3.4-5.0); ALBUMIN/GLOBULIN RATIO 0.7 (1.1-1.5); ALKALINE PHOSPHATASE 82 IU/L (46-116); ANION GAP 5 (8-16); ASPARTATE AMINO TRANSFERASE 33 U/L (10-37); BILIRUBIN,TOTAL 0.3 MG/DL (0.1-1.0); BLOOD UREA NITROGEN 8 MG/DL (7-18); BUN/CREATININE RATIO 9.5 (10.0-20.0); CALCIUM 8.8 MG/DL (8.5-10.1); CHLORIDE 106 MMOL/L (99-107); CREATININE 0.84 MG/DL (0.40-0.90); GLUCOSE 91 MG/DL (70-104); MAGNESIUM 2.2 MG/DL (1.5-2.4); PHOSPHORUS 2.6 MG/DL (2.3-4.5); POTASSIUM 3.6 MMOL/L (3.5-5.1); SODIUM 141 MMOL/L (135-145); TOTAL CARBON DIOXIDE 30.5 MMOL/L (24-32); TOTAL PROTEIN 6.4 G/DL (6.4-8.2); eGFR 75 ML/MIN
[2023-02-28] MEDS: K and/or MAG REPLACEMENT MC SCH ×2 (07:15→19:24)
[2023-02-28] MEDS: estradiol 1mg tablet PO SCH (07:21)
[2023-02-28] MEDS: heparin, porcine 5000 units/ml vial SQ SCH ×2 (08:00→19:17)
--- NOTE | 2023-02-28 08:23 | NUR ---
PAGED DR FOWLER RE: Message: O/N PLEASE CALL ANTWON [phone]
[2023-02-28] MEDS: normal saline 1000ml 1,000 ML IV SCH ×2 (09:13→19:23)
--- NOTE | 2023-02-28 10:16 | NUR ---
I received telephone orders to DC the gomez and for a regular diet from Dr. Ochoa
--- NOTE | 2023-02-28 10:30 | NUR ---
dc gomez cath, pt tolerated well
[2023-02-28 10:53] VITALS: BP 153/94
[2023-02-28 18:00] VITALS: BP 110/50
--- NOTE | 2023-02-28 18:00 | NUR ---
Patient in room [facility]TH[facility] 4006. I have received report from ALLISON Santacruz and had the opportunity to ask questions and assume patient care.
[2023-02-28] MEDS: CefTRIAXone/D5W-Rocephin 1gm 50 ML IV SCH (18:03)
--- NOTE | 2023-02-28 18:34 | NUR ---
Problems reprioritized. Patient report given, questions answered & plan of care reviewed with CARLOS COOPER.
[2023-02-28 21:40] VITALS: BP 121/55
[2023-03-01] MEDS: HYDROmorphone inj. 0.5 MG/0.5 ML DISP.SYRIN IV PRN ×6 (03:42→22:47)
[2023-03-01] MEDS: normal saline 1000ml 1,000 ML IV SCH ×2 (03:47→13:21)
[2023-03-01 06:01] LABS: BASOPHILS # (AUTO) 0.1 X10'3 (0-0.2); BASOPHILS % (AUTO) 0.9 % (0-1); EOSINOPHILS # (AUTO) 0.6 X10'3 (0-0.9); EOSINOPHILS % (AUTO) 9.1 % (0-6); HEMATOCRIT 26.1 % (35.0-45.0); HEMOGLOBIN 8.3 g/dl (12.0-16.0); LYMPHOCYTES # (AUTO) 1.6 X10'3 (1.1-4.8); MEAN CORPUSCULAR HEMOGLOBIN 24.2 PG (27.0-31.0); MEAN CORPUSCULAR HGB CONC 31.7 g/dL (33.0-36.5); MEAN CORPUSCULAR VOLUME 76.3 FL (78-98); MEAN PLATELET VOLUME 8.7 FL (7.4-10.4); MONOCYTES # (AUTO) 0.5 X10'3 (0-0.9); MONOCYTES % (AUTO) 8.1 % (2-12); NEUTROPHILS # (AUTO) 3.5 X10'3 (1.8-7.7); NEUTROPHILS % (AUTO) 55.9 % (42-75); PLATELET COUNT 337 X10'3 (140-440); RED BLOOD COUNT 3.43 X10'6 (4.20-5.60); RED CELL DISTRIBUTION WIDTH 16.6 % (11.5-14.5); WHITE BLOOD COUNT 6.2 X10'3 (4.5-11.0)
--- NOTE | 2023-03-01 06:08 | NUR ---
Problems reprioritized. Patient report given, questions answered & plan of care reviewed with ALLISON Alcaraz.
[2023-03-01 06:19] LABS: ALANINE AMINOTRANSFERASE 31 U/L (12-78); ALBUMIN 2.3 G/DL (3.4-5.0); ALBUMIN/GLOBULIN RATIO 0.7 (1.1-1.5); ALKALINE PHOSPHATASE 87 IU/L (46-116); ANION GAP 3 (8-16); ASPARTATE AMINO TRANSFERASE 33 U/L (10-37); BILIRUBIN,TOTAL 0.2 MG/DL (0.1-1.0); BLOOD UREA NITROGEN 5 MG/DL (7-18); BUN/CREATININE RATIO 6.3 (10.0-20.0); CALCIUM 8.3 MG/DL (8.5-10.1); CHLORIDE 108 MMOL/L (99-107); GLUCOSE 113 MG/DL (70-104); MAGNESIUM 2.1 MG/DL (1.5-2.4); PHOSPHORUS 3.2 MG/DL (2.3-4.5); POTASSIUM 3.4 MMOL/L (3.5-5.1); SODIUM 141 MMOL/L (135-145); TOTAL CARBON DIOXIDE 29.9 MMOL/L (24-32); TOTAL PROTEIN 5.7 G/DL (6.4-8.2); eGFR 79 ML/MIN
[2023-03-01 06:24] VITALS: BP 101/56
[2023-03-01] MEDS: multivitamins, therapeutics tablet PO SCH (07:04)
[2023-03-01] MEDS: heparin, porcine 5000 units/ml vial SQ SCH ×2 (07:08→19:41)
[2023-03-01] MEDS: estradiol 1mg tablet PO SCH (07:11)
[2023-03-01] MEDS: lisinopril 10 MG tablet PO SCH (07:15)
[2023-03-01] MEDS: K and/or MAG REPLACEMENT MC SCH ×3 (08:00→19:36)
--- NOTE | 2023-03-01 10:25 | NUR ---
Bladder scanned patient after voiding 475ml's of urine bladder scan showed 11ml's
[2023-03-01 11:13] VITALS: BP 113/75
[2023-03-01] MEDS: ondansetron/PF 4mg/2ml inj IV PRN (12:52)
--- NOTE | 2023-03-01 15:30 | NUR ---
Initial: Pt admit for sepsis and possible urinoma. Pt initially NPO with diet advancement to regular / and pt eating poorly, documented with mostly 0% PO intake of meals. Pt seen at bedside, reports a low appetite. Pt requests smoothies TID though no additional food preferences at this time, d/w dietary. Pt states food looks good though her appetite is low. Pt would benefit from Ensure Enlive TID if meal intake does not improve. LBM 6/3 per I&O. Will continue to follow closely and make recommendations as appropriate. Recommendations: 1) Continue regular diet 2) Smoothies TID per pt request 3) Consider Ensure Enlive TID if PO intake does not improve 4) Bowel care PRN 5) Scaled weight this admit; subsequent weekly scaled weights Addendum: 03/01/23 at [address] Amended: Links added.
--- NOTE | 2023-03-01 16:00 | NUR ---
Message: Kieran Lopes [phone] Re: [id number] Lazara Mckenna. Patient K+ is low would you like me to add the protocol, and patient states with Antibiotics will need a probiotic to prevent fungal infection, and toradol for pain.
[2023-03-01] MEDS ORDERED: magnesium 4gm in 100ml NS 100 ML IV PRN (16:05)
[2023-03-01] MEDS ORDERED: magnesium 2GM in 50ml NS 50 ML IV PRN (16:05)
[2023-03-01] MEDS ORDERED: ketorolac trometh. 30mg/ml inj. IV ONE (16:05)
[2023-03-01] MEDS ORDERED: potassium Cl 40MEQ/1/2NS 520ml 520 ML IV PRN (16:05)
[2023-03-01] MEDS ORDERED: magnesium Cl slow-release 64mg tablet PO PRN (16:05)
[2023-03-01] MEDS ORDERED: potassium Cl 20 mEq SR tablet PO PRN (16:05)
[2023-03-01] MEDS: sodium ferric gluc complex inj 125 MG in normal saline 100ml IV soln 100 ML IV SCH (16:36)
[2023-03-01 16:37] LABS: HEMOGLOBIN A1C 4.8 % (4.5-6.2)
[2023-03-01] MEDS: potassium Cl 20 mEq SR tablet PO PRN ×2 (16:42→21:33)
[2023-03-01] MEDS: lactobacillus rhamnosus 10,000 MMU CELLS/CAPSULE PO SCH ×2 (16:43→19:41)
[2023-03-01 17:01] LABS: CHOL/HDL RATIO 5.7 (0.00-4.99); CHOLESTEROL 130 MG/DL (0-200); HDL CHOLESTEROL 23 MG/DL (35-60); LDL CHOLESTEROL 94 MG/DL (50-100); TRIGLYCERIDES 77 MG/DL (20-135)
[2023-03-01 18:00] VITALS: BP 120/76
[2023-03-01] MEDS: CefTRIAXone/D5W-Rocephin 1gm 50 ML IV SCH (18:01)
--- NOTE | 2023-03-01 18:46 | NUR ---
Problems reprioritized. Patient report given, questions answered & plan of care reviewed with Prudence RN.
--- NOTE | 2023-03-01 18:53 | NUR ---
Patient in room ORTHO 4006. I have received report from IBIS COOPER and had the opportunity to ask questions and assume patient care.
[2023-03-01 21:10] LABS: FERRITIN 73 NG/ML (8-252)
[2023-03-01 22:00] VITALS: BP 130/84
[2023-03-02] MEDS: normal saline 1000ml 1,000 ML IV SCH (02:38)
[2023-03-02] MEDS: HYDROmorphone inj. 0.5 MG/0.5 ML DISP.SYRIN IV PRN ×4 (02:58→13:35)
--- NOTE | 2023-03-02 06:23 | NUR ---
Problems reprioritized. Patient report given, questions answered & plan of care reviewed with IBIS RN.
[2023-03-02 06:28] VITALS: BP 122/68
--- NOTE | 2023-03-02 06:38 | NUR ---
Patient in room [facility]THO 4006. I have received report from Crystal COOPER and had the opportunity to ask questions and assume patient care.
[2023-03-02 06:48] LABS: ALANINE AMINOTRANSFERASE 24 U/L (12-78); ALBUMIN 2.4 G/DL (3.4-5.0); ALBUMIN/GLOBULIN RATIO 0.6 (1.1-1.5); ALKALINE PHOSPHATASE 71 IU/L (46-116); ANION GAP 5 (8-16); ASPARTATE AMINO TRANSFERASE 17 U/L (10-37); BILIRUBIN,TOTAL 0.1 MG/DL (0.1-1.0); BLOOD UREA NITROGEN 5 MG/DL (7-18); BUN/CREATININE RATIO 6.2 (10.0-20.0); CALCIUM 8.7 MG/DL (8.5-10.1); CHLORIDE 110 MMOL/L (99-107); CREATININE 0.81 MG/DL (0.40-0.90); GLUCOSE 95 MG/DL (70-104); MAGNESIUM 1.9 MG/DL (1.5-2.4); PHOSPHORUS 4.1 MG/DL (2.3-4.5); SODIUM 144 MMOL/L (135-145); TOTAL CARBON DIOXIDE 28.6 MMOL/L (24-32); TOTAL PROTEIN 6.1 G/DL (6.4-8.2); eGFR 78 ML/MIN
[2023-03-02 06:51] LABS: % IRON SATURATION 53 % (11-46); IRON 148 UG/DL (49-151); TOTAL IRON BINDING CAPACITY 277 UG/DL (259-388)
[2023-03-02 07:00] VITALS: BP 120/74
[2023-03-02 07:01] LABS: BASOPHILS # (AUTO) 0.1 X10'3 (0-0.2); BASOPHILS % (AUTO) 1.3 % (0-1); EOSINOPHILS # (AUTO) 0.5 X10'3 (0-0.9); HEMATOCRIT 27.3 % (35.0-45.0); HEMOGLOBIN 8.7 g/dl (12.0-16.0); LYMPHOCYTES # (AUTO) 1.7 X10'3 (1.1-4.8); LYMPHOCYTES % (AUTO) 31.1 % (21-51); MEAN CORPUSCULAR HEMOGLOBIN 24.3 PG (27.0-31.0); MEAN CORPUSCULAR HGB CONC 31.9 g/dL (33.0-36.5); MEAN CORPUSCULAR VOLUME 76.1 FL (78-98); MONOCYTES # (AUTO) 0.4 X10'3 (0-0.9); MONOCYTES % (AUTO) 6.9 % (2-12); NEUTROPHILS # (AUTO) 2.9 X10'3 (1.8-7.7); NEUTROPHILS % (AUTO) 51.7 % (42-75); PLATELET COUNT 364 X10'3 (140-440); RED BLOOD COUNT 3.59 X10'6 (4.20-5.60); RED CELL DISTRIBUTION WIDTH 16.2 % (11.5-14.5); WHITE BLOOD COUNT 5.6 X10'3 (4.5-11.0)
[2023-03-02] MEDS: estradiol 1mg tablet PO SCH (07:40)
[2023-03-02] MEDS: multivitamins, therapeutics tablet PO SCH (07:40)
[2023-03-02] MEDS: lactobacillus rhamnosus 10,000 MMU CELLS/CAPSULE PO SCH (07:40)
[2023-03-02] MEDS: heparin, porcine 5000 units/ml vial SQ SCH (07:48)
[2023-03-02] MEDS: K and/or MAG REPLACEMENT MC SCH ×2 (08:00)
[2023-03-02] MEDS: lisinopril 10 MG tablet PO SCH (08:00)
[2023-03-02] MEDS: sodium ferric gluc complex inj 125 MG in normal saline 100ml IV soln 100 ML IV SCH (08:39)
[2023-03-02] MEDS ORDERED: HYDR-3965 PO (12:44)
[2023-03-02] MEDS ORDERED: LACT1CAP55 PO (12:44)
[2023-03-02] MEDS ORDERED: CIPR-202 PO (12:44)
--- NOTE | 2023-03-02 16:13 | NUR ---
Patient discharged home with family, patient discharge was completed with family in room at time. Patient was educated on new medications, follow up appointments, and smoking cessation. Patient iv taken out at the time of discharge, canula intact and whole. Patient ambulated out of hospital with all belongings and transported home via private vehicle.
== END 2023-03-02 13:50 | disposition home or self-care (01) | DRG 720 ==
LOC: ER 17:07 → ED HOLD 21:08 → ORTHO 4S 02-26 00:40
PROVIDERS: ADMIT Internal Medicine; ATTEND Family Medicine
DX: A41.9 Sepsis, unspecified organism (principal); S37.10XA Unspecified injury of ureter, initial encounter; D64.9 Anemia, unspecified; B96.5 Pseudomonas (aeruginosa) (mallei) (pseudomallei) as the cause of diseases classified elsewhere; N39.0 Urinary tract infection, site not specified; E66.01 Morbid (severe) obesity due to excess calories; Z68.41 Body mass index [BMI] 40.0-44.9, adult; R65.20 Severe sepsis without septic shock; E87.6 Hypokalemia; J45.909 Unspecified asthma, uncomplicated; G89.29 Other chronic pain; X58.XXXA Exposure to other specified factors, initial encounter; Z90.710 Acquired absence of both cervix and uterus
CPT/HCPCS: 36415; 71045; 74176; 74177; 80053; 80061; 81001; 82728; 83036; 83540; 83550; 83605; 83735; 84100; 84145; 84443; 85025; 87040; 87077; 87081; 87088; 87186; 93005; 99285; A5200; G0378; J0696; J0780; J1170; J1644; J1885; J2270; J2405; J2916; J3490; J7030; Q9967

== ENCOUNTER 2023-03-18 10:52 | Day surgery (SDC) | payer MEDICAID ==
[2023-03-12 11:22] LABS: BASOPHILS # (AUTO) 0.1 X10'3 (0-0.2); BASOPHILS % (AUTO) 0.9 % (0-1); EOSINOPHILS # (AUTO) 0.5 X10'3 (0-0.9); EOSINOPHILS % (AUTO) 6.5 % (0-6); LYMPHOCYTES # (AUTO) 1.3 X10'3 (1.1-4.8); LYMPHOCYTES % (AUTO) 18.2 % (21-51); MEAN CORPUSCULAR HEMOGLOBIN 23.8 PG (27.0-31.0); MEAN PLATELET VOLUME 8.2 FL (7.4-10.4); MONOCYTES # (AUTO) 0.3 X10'3 (0-0.9); MONOCYTES % (AUTO) 4.4 % (2-12); NEUTROPHILS # (AUTO) 5.1 X10'3 (1.8-7.7); PRE OP HEMOGLOBIN 11.8 g/dL (12.0-16.0); PRE OP PLATELET COUNT 485 X10'3 (140-440); RED BLOOD COUNT 4.95 X10'6 (4.20-5.60); RED CELL DISTRIBUTION WIDTH 17.6 % (11.5-14.5)
[2023-03-12 11:35] LABS: ALBUMIN 3.5 G/DL (3.4-5.0); ALKALINE PHOSPHATASE 83 IU/L (46-116); BLOOD UREA NITROGEN 11 MG/DL (7-18); BUN/CREATININE RATIO 11.7 (10.0-20.0); CALCIUM 9.5 MG/DL (8.5-10.1); CHLORIDE 105 MMOL/L (99-107); CREATININE 0.94 MG/DL (0.40-0.90); PRE OP ALT 32 U/L (30-65); PRE OP ANION GAP 8 (8-16); PRE OP AST 22 U/L (10-37); PRE OP BILIRUB, TOTAL 0.3 MG/DL (0.0-1.0); PRE OP GLUCOSE 93 MG/DL (70-104); PRE OP POTASSIUM 4.2 MMOL/L (3.4-5.1); PRE OP SODIUM 140 MMOL/L (135-145); TOTAL CARBON DIOXIDE 27.5 MMOL/L (24-32); eGFR 66 ML/MIN
[2023-03-12 11:41] LABS: MEAN CORPUSCULAR HGB CONC 31.8 g/dL (33.0-36.5); MEAN CORPUSCULAR VOLUME 75.2 FL (78-98)
[2023-03-12 12:05] LABS: ANISOCYTOSIS 1+; ELLIPTOCYTES FEW; PLATELET ESTIMATE INCREASED
[2023-03-12 12:06] LABS: MICROCYTOSIS 1+
[~2023-03-18] VITALS: Ht 177.8 cm; Wt 137.2 kg
[2023-03-18] VITALS (10 sets, daily range): BP systolic 120–163; BP diastolic 56–95
[~2023-03-18 10:52] MED LIST changes: -ALBU6.7H14 INH; -CEPH250T PO; +CIPR500T5 PO; -CYCL-1 PO; -DEXL60CA3 PO; +ESTR1TAB28 PO; -FERR324T4 PO; +LISI10TA27 PO; -METH-360 PO; -ONDA4TAB6 PO; -PHEN16.241 PO; -ZOF4T PO; +ceFAZolin inj. 3,000 MG in normal saline 100ml IV soln 100 ML IV ONE; +famotidine 20mg tablet PO ONE; +ringers solution, lacted 1,000 ML IV SCH
[2023-03-18] MEDS ORDERED: NITR100C11 PO (11:49)
[2023-03-18] MEDS ORDERED: iohexol 300 MG/1 ML 50ml polymer ONE (11:56)
[2023-03-18] MEDS ORDERED: sevoflurane 250ml liquid IH ONE (13:26)
[2023-03-18] MEDS ORDERED: ondansetron/PF 4mg/2ml inj IV PRN (13:30)
[2023-03-18] MEDS ORDERED: proCHLORperazine 10 MG/2 ml inj IV PRN (13:30)
[2023-03-18] MEDS ORDERED: HYDROmorphone/PF 0.2 MG/ML SYRINGE IV PRN ×2 (13:30)
[2023-03-18] MEDS ORDERED: morphine 2 MG/ML inj. syringe IV PRN (13:30)
[2023-03-18] MEDS ORDERED: hydrALAZINE 20mg/ml inj. IV PRN (13:30)
[2023-03-18] MEDS ORDERED: acetaminophen 1,000mg/100ml IV 100 ML IV PRN (13:30)
[2023-03-18] MEDS ORDERED: ringers solution, lacted 1,000 ML IV SCH (13:30)
[2023-03-18] MEDS ORDERED: labetalol 20mg/4ml (5mg/ml) syringe IV PRN (13:30)
[2023-03-18] MEDS ORDERED: morphine 4 MG/ML inj SYRINge IV PRN (13:30)
[2023-03-18] MEDS ORDERED: meperidine/PF 25mg/ml syringe IV PRN (13:30)
[2023-03-18] MEDS ORDERED: fentaNYL/PF 50MCG/1 ML 2ML syringe ONE (13:32)
[2023-03-18] MEDS ORDERED: midazolam 1 mg/ML 2ml injection ONE (13:32)
[2023-03-18] MEDS ORDERED: ondansetron/PF 4mg/2ml inj ONE (13:42)
[2023-03-18] MEDS ORDERED: propofol inj 20 ML IV ONE (13:43)
[2023-03-18] MEDS ORDERED: LIDOcaine 2% (20mg/ml) 5ml vial ONE (13:43)
[2023-03-18] MEDS ORDERED: dexamethasone sod phosphate 4mg/ml inj. ONE (13:43)
[2023-03-18] MEDS ORDERED: CEPH500C2 PO (14:32)
[2023-03-18] MEDS ORDERED: ipratropium/albuterol 3ml nebule NEB PRN (14:35)
--- NOTE | 2023-03-18 14:35 | NUR ---
Received from OR via [facility], accompanied by Anesthesiologist DR GUNTER and report given by Anesthesiologist. PT IS GROGGY BUT RESPONDS TO VERBAL STIMULI AND FOLLOWS COMMANDS. PT PLACED ON BEDSIDE MONITOR, VSS. IS IN SR WITH RATE IN 80'S. PT IS RECEIVING 10L O2 TO MASK AND TOLERATING WELL WITH O2 SAT >95% AND WILL TITRATE DOWN PT TOLERATES. PT HAS 20G PIV TO RT HAND WITH LR INFUSING ORDERED. PT DENIES PAIN AT THIS TIME AND IS HAVING SOME NAUSEA. WILL TREAT AND CONTINUE TO ASSESS
[2023-03-18] MEDS ORDERED: ketorolac tromethamine 15mg/ml inj. IM ONE (16:05)
[2023-03-18] MEDS ORDERED: HYDROcodone/acetaminophen 5mg/325mg tablet PO ONE (16:05)
[2023-03-18] MEDS ORDERED: ketorolac tromethamine 15mg/ml inj. IV ONE (16:15)
--- NOTE | 2023-03-18 17:05 | NUR ---
ALL DISCHARGE CRITERIA HAS BEEN MET. VSS, PAIN AT A TOLERABLE LEVEL, VOIDING AND ABLE TO SAFELY AMBULATE AND TRANSFER SELF. IV TAKEN OUT WITHOUT ANY COMPLICATIONS. ALL DISCHARGE INSTRUCTIONS COVERED WITH PATIENT AND ALL QUESTIONS ANSWERED. PATIENT TAKEN OUT VIA WHEELCHAIR TO PERSONAL VEHICLE WHERE FIANCE DROVE PATIENT HOME.
== END 2023-03-18 16:49 | disposition home or self-care (01) ==
LOC: PAS 10:52
PROVIDERS: ATTEND Urology
DX: S37.19XA Other injury of ureter, initial encounter (principal); N20.0 Calculus of kidney; N13.5 Crossing vessel and stricture of ureter without hydronephrosis; G47.33 Obstructive sleep apnea (adult) (pediatric); E66.9 Obesity, unspecified; Z68.41 Body mass index [BMI] 40.0-44.9, adult; I10 Essential (primary) hypertension; Z90.710 Acquired absence of both cervix and uterus; Z98.890 Other specified postprocedural states; F17.210 Nicotine dependence, cigarettes, uncomplicated; G89.29 Other chronic pain; Z79.899 Other long term (current) drug therapy; Z80.52 Family history of malignant neoplasm of bladder; Z84.1 Family history of disorders of kidney and ureter; X58.XXXA Exposure to other specified factors, initial encounter; Y92.89 Other specified places as the place of occurrence of the external cause; Y93.89 Activity, other specified; Y99.8 Other external cause status
CPT/HCPCS: 36415; 52332; 52352; 74420; 80053; 82948; 85025; 94640; C1769; C2617; J0131; J0690; J0780; J1100; J1170; J1885; J2250; J2405; J2704; J3010; J3490; J7030; J7120; Q9967; Z7506; Z7508; Z7512; 76000; 85008; A4338; A4618; A7000

== ENCOUNTER 2023-05-03 21:47 | Emergency (ER) | payer MEDICAID ==
[~2023-05-03] VITALS: Ht 177.8 cm; Wt 131.4 kg
[~2023-05-03 21:47] MED LIST changes: -CIPR500T5 PO; +NITR100C11 PO; -ceFAZolin inj. 3,000 MG in normal saline 100ml IV soln 100 ML IV ONE; -famotidine 20mg tablet PO ONE; -ringers solution, lacted 1,000 ML IV SCH
[2023-05-03 22:39] LABS: CLARITY,URINE CLEAR (Clear); COLOR,URINE YELLOW (Yellow); GLUCOSE, URINE NEGATIVE (Neg); KETONES,URINE NEGATIVE (Neg); LEUKOCYTE ESTERASE ,URINE NEGATIVE (Neg); NITRITES, URINE NEGATIVE (Neg); OCCULT BLOOD,URINE SMALL (Neg); PROTEIN,URINE NEGATIVE (Neg); UROBILINOGEN,URINE 0.2 E.U/dL (0.2-1.0)
[2023-05-03 22:40] LABS: UA COLLECTION TYPE CLN CATCH MIDSTREAM
[2023-05-03 22:47] LABS: SQUAMOUS EPITHELIAL CELL,UR MODERATE /LPF (FEW)
[2023-05-03 22:49] LABS: BACTERIA,URINE FEW /HPF (Neg); MUCUS STRANDS MANY /LPF (Neg); RBC,URINE 0-2 /HPF (0-2)
[2023-05-04] MEDS ORDERED: morphine 4 MG/ML inj SYRINge IV PRN (02:30)
[2023-05-04] MEDS ORDERED: ondansetron/PF 4mg/2ml inj IV ONE (02:30)
[2023-05-04] MEDS ORDERED: normal saline 1000ML IV soln IVB ONE (02:30)
[2023-05-04 03:16] LABS: BASOPHILS % (AUTO) 0.5 % (0-1); HEMOGLOBIN 12.4 g/dl (12.0-16.0); MEAN PLATELET VOLUME 8.1 FL (7.4-10.4)
[2023-05-04 03:18] LABS: EOSINOPHILS # (AUTO) 0.6 X10'3 (0-0.9); EOSINOPHILS % (AUTO) 5.3 % (0-6); HEMATOCRIT 38.7 % (35.0-45.0); LYMPHOCYTES # (AUTO) 2.1 X10'3 (1.1-4.8); LYMPHOCYTES % (AUTO) 20.2 % (21-51); MEAN CORPUSCULAR HEMOGLOBIN 25.5 PG (27.0-31.0); MEAN CORPUSCULAR HGB CONC 32.1 g/dL (33.0-36.5); MEAN CORPUSCULAR VOLUME 79.3 FL (78-98); MONOCYTES # (AUTO) 0.8 X10'3 (0-0.9); MONOCYTES % (AUTO) 7.6 % (2-12); NEUTROPHILS % (AUTO) 66.4 % (42-75); PLATELET COUNT 378 X10'3 (140-440); RED BLOOD COUNT 4.88 X10'6 (4.20-5.60); RED CELL DISTRIBUTION WIDTH 18.9 % (11.5-14.5); WHITE BLOOD COUNT 10.5 X10'3 (4.5-11.0)
[2023-05-04 03:32] LABS: ALANINE AMINOTRANSFERASE 30 U/L (12-78); ALBUMIN 3.3 G/DL (3.4-5.0); ALBUMIN/GLOBULIN RATIO 0.9 (1.1-1.5); ALKALINE PHOSPHATASE 82 IU/L (46-116); ANION GAP 7 (8-16); ASPARTATE AMINO TRANSFERASE 25 U/L (10-37); BILIRUBIN,TOTAL 0.3 MG/DL (0.1-1.0); BLOOD UREA NITROGEN 11 MG/DL (7-18); BUN/CREATININE RATIO 9.4 (10.0-20.0); CALCIUM 9.6 MG/DL (8.5-10.1); CHLORIDE 106 MMOL/L (99-107); CREATININE 1.17 MG/DL (0.40-0.90); GLUCOSE 100 MG/DL (70-104); LIPASE 50 U/L (73-393); POTASSIUM 3.8 MMOL/L (3.5-5.1); SODIUM 140 MMOL/L (135-145); TOTAL CARBON DIOXIDE 26.8 MMOL/L (24-32); TOTAL PROTEIN 6.9 G/DL (6.4-8.2); eGFR 51 ML/MIN
[2023-05-04 05:35] LABS: ANISOCYTOSIS 2+; MICROCYTOSIS 1+; PLATELET ESTIMATE NORMAL
[2023-05-04] MEDS ORDERED: ketorolac trometh. 30mg/ml inj. IV ONE (05:45)
[2023-05-04 06:29] VITALS: BP 116/74; PULSE 78; TEMP 97.8; O2SAT 96
[2023-05-04] MEDS ORDERED: NAPR-56 PO (06:57)
[2023-05-04 07:38] VITALS: RESP 20
[2023-05-04 09:37] LABS: URINE HCG NEGATIVE (NEG)
== END 2023-05-04 07:50 | disposition home or self-care (01) ==
LOC: ER 21:48
DX: N13.30 Unspecified hydronephrosis (principal); R10.9 Unspecified abdominal pain; G89.29 Other chronic pain; F17.200 Nicotine dependence, unspecified, uncomplicated; Z90.710 Acquired absence of both cervix and uterus; Z72.89 Other problems related to lifestyle; Z79.899 Other long term (current) drug therapy
CPT/HCPCS: 36415; 76770; 80053; 81001; 81025; 83690; 85008; 85025; 87088; 96361; 96374; 96375; 99285; J1885; J2270; J2405; J7030

== ENCOUNTER 2023-07-17 21:23 | Emergency (ER) | payer MEDICAID ==
[~2023-07-17] VITALS: Ht 177.8 cm; Wt 132.8 kg
[~2023-07-17 21:23] MED LIST changes: -NITR100C11 PO
[2023-07-17 22:01] LABS: BILIRUBIN,URINE NEGATIVE (Neg); CLARITY,URINE CLOUDY (Clear); COLOR,URINE YELLOW (Yellow); GLUCOSE, URINE NEGATIVE (Neg); KETONES,URINE NEGATIVE (Neg); LEUKOCYTE ESTERASE ,URINE LARGE (Neg); NITRITES, URINE POSITIVE (Neg); OCCULT BLOOD,URINE MODERATE (Neg); PH,URINE 6.5 (4.8-8.0); PROTEIN,URINE 100 mg/dl (Neg); UROBILINOGEN,URINE 0.2 E.U/dL (0.2-1.0)
[2023-07-17 22:02] LABS: UA COLLECTION TYPE CLN CATCH MIDSTREAM
[2023-07-17 22:14] LABS: BASOPHILS # (AUTO) 0.1 X10'3 (0-0.2); BASOPHILS % (AUTO) 0.6 % (0-1); EOSINOPHILS # (AUTO) 0.9 X10'3 (0-0.9); EOSINOPHILS % (AUTO) 8.4 % (0-6); HEMATOCRIT 39.2 % (35.0-45.0); HEMOGLOBIN 12.9 g/dl (12.0-16.0); LYMPHOCYTES # (AUTO) 2.4 X10'3 (1.1-4.8); MEAN CORPUSCULAR HEMOGLOBIN 27.2 PG (27.0-31.0); MEAN CORPUSCULAR HGB CONC 32.9 g/dL (33.0-36.5); MEAN CORPUSCULAR VOLUME 82.5 FL (78-98); MEAN PLATELET VOLUME 7.9 FL (7.4-10.4); MONOCYTES # (AUTO) 0.6 X10'3 (0-0.9); MONOCYTES % (AUTO) 5.9 % (2-12); NEUTROPHILS # (AUTO) 6.2 X10'3 (1.8-7.7); NEUTROPHILS % (AUTO) 61.1 % (42-75); PLATELET COUNT 442 X10'3 (140-440); RED BLOOD COUNT 4.75 X10'6 (4.20-5.60); WHITE BLOOD COUNT 10.1 X10'3 (4.5-11.0)
[2023-07-17 22:28] LABS: ALANINE AMINOTRANSFERASE 38 U/L (12-78); ALBUMIN 3.5 G/DL (3.4-5.0); ALBUMIN/GLOBULIN RATIO 0.9 (1.1-1.5); ALKALINE PHOSPHATASE 101 IU/L (46-116); ANION GAP 5 (8-16); ASPARTATE AMINO TRANSFERASE 19 U/L (10-37); BILIRUBIN,TOTAL 0.2 MG/DL (0.1-1.0); BLOOD UREA NITROGEN 11 MG/DL (7-18); BUN/CREATININE RATIO 8.3 (10.0-20.0); CALCIUM 10.3 MG/DL (8.5-10.1); CHLORIDE 106 MMOL/L (99-107); CREATININE 1.32 MG/DL (0.40-0.90); GLUCOSE 136 MG/DL (70-104); POTASSIUM 3.6 MMOL/L (3.5-5.1); SODIUM 141 MMOL/L (135-145); TOTAL CARBON DIOXIDE 29.6 MMOL/L (24-32); TOTAL PROTEIN 7.5 G/DL (6.4-8.2); eCRCL 61 ML/MIN; eGFR 45 ML/MIN
[2023-07-17 22:29] LABS: BACTERIA,URINE 2+ /HPF (Neg); RBC,URINE TNTC /HPF (0-2); SQUAMOUS EPITHELIAL CELL,UR FEW /LPF (FEW); WBC,URINE TNTC /HPF (0-4)
[2023-07-17 23:41] VITALS: BP 178/90; PULSE 98; TEMP 98.3; O2SAT 100
[2023-07-18] MEDS ORDERED: FOSFOMYCIN TROMETHAMINE 3 GM PACKET PO ONE (00:10)
[2023-07-18 00:24] VITALS: RESP 16
== END 2023-07-18 00:33 | disposition home or self-care (01) ==
LOC: ER 21:23
DX: N39.0 Urinary tract infection, site not specified (principal); G89.29 Other chronic pain; M54.9 Dorsalgia, unspecified; Z90.49 Acquired absence of other specified parts of digestive tract; Z88.8 Allergy status to other drugs, medicaments and biological substances
CPT/HCPCS: 36415; 71045; 80053; 81001; 83605; 84145; 85025; 87040; 87077; 87088; 87186; 93005; 99285

== ENCOUNTER 2023-07-23 10:40 | Emergency (ER) | payer MEDICAID ==
[~2023-07-23] VITALS: Ht 177.8 cm; Wt 140.1 kg
[2023-07-23 11:40] VITALS: TEMP 97.8
[2023-07-23 11:45] LABS: BILIRUBIN,URINE NEGATIVE (Neg); CLARITY,URINE SLIGHTLY CLOUDY (Clear); COLOR,URINE YELLOW (Yellow); GLUCOSE, URINE NEGATIVE (Neg); KETONES,URINE NEGATIVE (Neg); LEUKOCYTE ESTERASE ,URINE NEGATIVE (Neg); NITRITES, URINE NEGATIVE (Neg); OCCULT BLOOD,URINE MODERATE (Neg); PH,URINE 6.5 (4.8-8.0); PROTEIN,URINE NEGATIVE (Neg); UROBILINOGEN,URINE 0.2 E.U/dL (0.2-1.0)
[2023-07-23 11:46] LABS: URINE HCG NEGATIVE (NEG)
[2023-07-23 11:48] LABS: UA COLLECTION TYPE CLN CATCH MIDSTREAM
[2023-07-23 11:48] LABS: BASOPHILS # (AUTO) 0.1 X10'3 (0-0.2); BASOPHILS % (AUTO) 0.9 % (0-1); EOSINOPHILS # (AUTO) 0.4 X10'3 (0-0.9); HEMATOCRIT 38.7 % (35.0-45.0); HEMOGLOBIN 12.9 g/dl (12.0-16.0); LYMPHOCYTES # (AUTO) 1.6 X10'3 (1.1-4.8); MEAN CORPUSCULAR HEMOGLOBIN 27.6 PG (27.0-31.0); MEAN CORPUSCULAR HGB CONC 33.4 g/dL (33.0-36.5); MEAN CORPUSCULAR VOLUME 82.7 FL (78-98); MEAN PLATELET VOLUME 7.9 FL (7.4-10.4); MONOCYTES # (AUTO) 0.3 X10'3 (0-0.9); MONOCYTES % (AUTO) 4.5 % (2-12); NEUTROPHILS # (AUTO) 5.1 X10'3 (1.8-7.7); NEUTROPHILS % (AUTO) 67.6 % (42-75); PLATELET COUNT 408 X10'3 (140-440); RED BLOOD COUNT 4.68 X10'6 (4.20-5.60); RED CELL DISTRIBUTION WIDTH 15.6 % (11.5-14.5); WHITE BLOOD COUNT 7.5 X10'3 (4.5-11.0)
[2023-07-23 11:55] LABS: HYALINE CASTS 0-3 /LPF (NEGATIVE); MUCUS STRANDS MANY /LPF (Neg); SQUAMOUS EPITHELIAL CELL,UR MANY /LPF (FEW)
[2023-07-23 11:56] LABS: RBC,URINE TNTC /HPF (0-2)
[2023-07-23 11:57] LABS: BACTERIA,URINE FEW /HPF (Neg); TRANSITIONAL EPI CELLS,URINE MANY /HPF
--- NOTE | 2023-07-23 12:49 | NUR ---
Pt. documentation completed by TANK FURNACE OPERATOR reviewed and concur with TANK FURNACE OPERATOR.
[2023-07-23] MEDS ORDERED: cefepime 2g/NS 100ml ADVANTAGE 100 ML IV STA (13:14)
[2023-07-23] MEDS ORDERED: HYDROcodone/acetaminophen 10/325mg tab PO STA (13:19)
[2023-07-23] MEDS ORDERED: ketorolac trometh. 30mg/ml inj. IV ONE (13:20)
[2023-07-23 13:37] LABS: ALANINE AMINOTRANSFERASE 34 U/L (12-78); ALBUMIN 3.5 G/DL (3.4-5.0); ALBUMIN/GLOBULIN RATIO 0.9 (1.1-1.5); ALKALINE PHOSPHATASE 94 IU/L (46-116); ANION GAP 7 (8-16); ASPARTATE AMINO TRANSFERASE 19 U/L (10-37); BILIRUBIN,TOTAL 0.3 MG/DL (0.1-1.0); BLOOD UREA NITROGEN 12 MG/DL (7-18); BUN/CREATININE RATIO 11.5 (10.0-20.0); CALCIUM 10.2 MG/DL (8.5-10.1); CHLORIDE 105 MMOL/L (99-107); CREATININE 1.04 MG/DL (0.40-0.90); GLUCOSE 96 MG/DL (70-104); MAGNESIUM 2.1 MG/DL (1.5-2.4); POTASSIUM 4.2 MMOL/L (3.5-5.1); SODIUM 138 MMOL/L (135-145); TOTAL PROTEIN 7.6 G/DL (6.4-8.2); eCRCL 78 ML/MIN; eGFR 59 ML/MIN
[2023-07-23 15:50] VITALS: BP 134/93; PULSE 79; RESP 16; O2SAT 100
== END 2023-07-23 16:04 | disposition home or self-care (01) ==
LOC: ER 10:40
DX: R10.819 Abdominal tenderness, unspecified site (principal); N17.9 Acute kidney failure, unspecified; Z79.899 Other long term (current) drug therapy; Z90.710 Acquired absence of both cervix and uterus
CPT/HCPCS: 36415; 71045; 76770; 80053; 81001; 81025; 83605; 83735; 84145; 85025; 93005; 96365; 96375; 99285; J0692; J1885

== ENCOUNTER 2024-09-02 09:38 | Outpatient (CLI) | payer MEDICAID ==
[2024-09-02 12:05] LABS: ALBUMIN 3.7 G/DL (3.4-5.0); ANION GAP 9 (8-16); BLOOD UREA NITROGEN 14 MG/DL (7-18); BUN/CREATININE RATIO 13.3 (10.0-20.0); CALCIUM 9.3 MG/DL (8.5-10.1); CHLORIDE 106 MMOL/L (99-107); CREATININE 1.05 MG/DL (0.40-0.90); GLUCOSE 89 MG/DL (70-104); POTASSIUM 4.3 MMOL/L (3.5-5.1); SODIUM 143 MMOL/L (135-145); TOTAL CARBON DIOXIDE 27.7 MMOL/L (24-32); eGFR 58 ML/MIN
== END 2024-09-02 23:59 | disposition home or self-care (01) ==
LOC: LAB 09:38
PROVIDERS: ATTEND Urology
DX: Z01.812 Encounter for preprocedural laboratory examination (principal)
CPT/HCPCS: 36415; 80048

== ENCOUNTER 2024-10-05 09:43 | Emergency (ER) | payer MEDICAID ==
[~2024-10-05] VITALS: Ht 177.8 cm; Wt 136.4 kg
[2024-10-05 09:46] VITALS: BP 131/87; PULSE 89; RESP 16; O2SAT 96
[2024-10-05] MEDS: dexamethasone sod phosphate 10mg/ml inj PO STA (09:57)
[2024-10-05] MEDS: diphenhydrAMINE 25mg capsule PO ONE (09:57)
[2024-10-05 09:59] VITALS: TEMP 98
== END 2024-10-05 10:01 | disposition home or self-care (01) ==
LOC: ER 09:43
DX: R21 Rash and other nonspecific skin eruption (principal); G47.30 Sleep apnea, unspecified; F17.210 Nicotine dependence, cigarettes, uncomplicated; Z90.710 Acquired absence of both cervix and uterus
CPT/HCPCS: 99283; J1100; Q0163